=== PATIENT | male | born 1985 | race Caucasian/White ===

== ENCOUNTER 2017-03-04 10:17 | Emergency (ER) | payer BC, OTHER ==
[~2017-03-04] VITALS: Ht 172.7 cm; Wt 70.3 kg
[2017-03-04 10:25] VITALS: BP 119/65
[2017-03-04] MEDS ORDERED: TRIA15OI TP (10:37)
[2017-03-04] MEDS ORDERED: FAMO-63 PO (10:37)
[2017-03-04] MEDS ORDERED: DIPH25CA58 PO (10:37)
[2017-03-04] MEDS ORDERED: PRED-220 PO (10:37)
--- NOTE | 2017-03-04 10:37 | PHYS DOC ---
Past Medical History Past Medical History: No Pertinent History Past Surgical History: No Surgical History Alcohol Use: None Drug Use: None Adult General Chief Complaint Chief Complaint: SKIN RASH/ABSCESS HPI HPI Patient is a 31 year old male who presents with poison soumya rash throughout his body that began 3 days ago. Patient has tried calamine lotion as well as over- the-counter poison soumya medication with no relief. He is requesting a Decadron shot. Review of Systems Review of Systems Constitutional: Denies fever or chills [] Eyes: Denies change in visual acuity, redness, or eye pain [] HENT: Denies nasal congestion or sore throat [] Musculoskeletal: Denies back pain or joint pain [] Integument: Poison soumya rash Neurologic: Denies headache, focal weakness or sensory changes [] Endocrine: Denies polyuria or polydipsia [] Allergies Allergies Allergies Coded Allergies Type Severity Reaction Last Updated Verified codeine Allergy Intermediate hives 11/02/13 Yes hydrocodone Allergy Intermediate vomiting 11/02/13 Yes tramadol Allergy Intermediate vomiting 11/02/13 Yes Physical Exam Physical Exam Constitutional: Well developed, well nourished, no acute distress, non-toxic appearance. [] HENT: Normocephalic, atraumatic, bilateral external ears normal, oropharynx moist, no oral exudates, nose normal. [] Eyes: PERRLA, EOMI, conjunctiva normal, no discharge. [] Skin: Patient has mild amount of erythema on his face, he does have mild amount of erythematous papular rash on bilateral upper and lower extremities. Back: No tenderness, no CVA tenderness. [] Extremities: No tenderness, no cyanosis, no clubbing, ROM intact, no edema. [] Neurologic: Alert and oriented X 3, normal motor function, normal sensory function, no focal deficits noted. [] Psychologic: Affect normal, judgement normal, mood normal. [] EKG EKG [] Radiology/Procedures Radiology/Procedures [] Course & Med Decision Making Course & Med Decision Making Pertinent Labs and Imaging studies reviewed. (See chart for details) Patient is in the ED with contact dermatitis rash due to poison soumya. He requested a Decadron shot which was given in the ED. Discharged with prednisone , Benadryl, Pepcid and triamcinolone cream. Follow-up with PCP in 2 weeks as needed. Dragon Disclaimer Dragon Disclaimer This electronic medical record was generated, in whole or in part, using a voice recognition dictation system. Departure Departure Impression: Primary Impression: Contact dermatitis due to poison soumya Disposition: HOME, SELF-CARE Condition: STABLE Referrals: NO PCP (PCP) JUAN ANDERSON MD Follow-up with the provided tooling mechanic or your own doctor in 2 weeks Patient Instructions: Poison Soumya, [id number] Additional Instructions: You were seen for contact dermatitis rash due to poison soumya. Keep the areas clean and dry. Take the prescribed medicines as ordered. Follow-up with your doctor in 2 weeks. Scripts Diphenhydramine Hcl (BENADRYL) 25 Mg Capsule 1 CAP PO Q4HRS W/A, #30 CAP 1 Refill Prov: TRACY DIEGO APRN 03/04/17 Triamcinolone Acetonide (TRIAMCINOLONE ACETONIDE 0.1% OINT) 15 Gm Oint...g. 1 ABELARDO TP BID for WOUND CARE, #1 TUBE MIX WITH EUCERIN DIRECTED BY PHYSICIAN Prov: TRACY DIEGO APRN 03/04/17 Famotidine (PEPCID) 20 Mg Tablet 20 MG PO DAILY, #7 TAB Prov: TRACY DIEGO APRN 03/04/17 Prednisone (PREDNISONE) 10 Mg Tablet 10 MG PO UD for PREDNISONE TAPER, #39 TAB 0 Refills Take 3 tablets by mouth twice a day for 3 days, then take 2 tablets by mouth twice a day for 3 days, then take 1 tablet by mouth twice a day for 3 days, then take 1 tablet by mouth daily x 3 days, then stop. Prov: TRACY DIEGO APRN 03/04/17 TRACY DIEGO APRN Mar 04, 2017 10:37
[2017-03-04] MEDS ORDERED: DEXAMETHASONE SOD PHOS 20 MG/5 ML VIAL. IM ONE (10:45)
== END 2017-03-04 11:11 | disposition home or self-care (01) ==
LOC: ER 10:17
DX: L23.7 Allergic contact dermatitis due to plants, except food (principal); Z88.5 Allergy status to narcotic agent
CPT/HCPCS: 96372; 99283; J1100

== ENCOUNTER 2019-01-10 20:04 | Inpatient (IN) | payer OTHER ==
[~2019-01-10] VITALS: Ht 175.3 cm; Wt 75.4 kg
[~2019-01-10 20:04] MED LIST: DIPH25CA58 PO; FAMO-63 PO; PRED-220 PO; TRIA15OI TP
[2019-01-10] MEDS ORDERED: VANCOMYCIN 1GM IVPB FOR OMNI 250 ML IV ONE (20:30)
[2019-01-10] MEDS ORDERED: IV NORMAL SALINE 1000ML BAG 1,000 ML IV ONE (20:30)
--- NOTE | 2019-01-10 20:31 | PHYS DOC ---
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 He states he's been using the same needle over and over to inject his prophylactic medicine for hemophilia. He is unsure of what that medicine is. He also admits to using IV cocaine. She feels warm but he has no documented fever. He states the pain is severe at this point. He has never had a history of these kind of issues in the past. He states he just relapsed on his IV drugs recently.[] Review of Systems Review of Systems Constitutional: Denies fever or chills [] Eyes: Denies change in visual acuity, redness, or eye pain [] HENT: Denies nasal congestion or sore throat [] Respiratory: Denies cough or shortness of breath [] Cardiovascular: No additional information not addressed in HPI [] GI: Denies abdominal pain, nausea, vomiting, bloody stools or diarrhea [] : Denies dysuria or hematuria [] Musculoskeletal: Denies back pain or joint pain [] Integument: Per history of present illness[] Neurologic: Denies headache, focal weakness or sensory changes [] Endocrine: Denies polyuria or polydipsia [] All other systems were reviewed and found to be within normal limits, except as documented in this note. Current Medications Current Medications Current Medications Medications (Trade) Dose Ordered Sig/Dorothy Start Time Stop Time Status Last Admin Dose Admin Fentanyl Citrate (Fentanyl 2ml Vial) 50 mcg PRN Q2HR PRN 01/10/19 22:00 01/11/19 21:59 Ondansetron HCl (Zofran) 4 mg PRN Q8HRS PRN 01/10/19 22:00 01/11/19 21:59 Sodium Chloride 1,000 ml @ 150 mls/hr Q6H40M 01/10/19 22:00 01/11/19 21:59 Vancomycin HCl 1.75 gm/Sodium Chloride 500 ml @ 250 mls/hr 1X ONCE 01/10/19 21:00 01/10/19 22:59 01/10/19 21:00 250 MLS/HR Allergies Allergies Allergies Coded Allergies Type Severity Reaction Last Updated Verified codeine Allergy Intermediate hives 11/02/13 Yes hydrocodone Allergy Intermediate vomiting 11/02/13 Yes tramadol Allergy Intermediate vomiting 11/02/13 Yes Physical Exam Physical Exam Constitutional: Well developed, well nourished, moderate distress, non-toxic appearance. [] HENT: Normocephalic, atraumatic, bilateral external ears normal, oropharynx moist, no oral exudates, nose normal. [] Eyes: PERRLA, EOMI, conjunctiva normal, no discharge. [] Neck: Normal range of motion, no tenderness, supple, no stridor. [] Cardiovascular:Heart rate regular rhythm, no murmur [] Lungs & Thorax: Bilateral breath sounds clear to auscultation [] Abdomen: Bowel sounds normal, soft, no tenderness, no masses, no pulsatile masses. [] Skin: Large erythematous fluctuant area in the right antecubital fossa with 2 small necrotic areas[] Back: No tenderness, no CVA tenderness. [] Extremities: No tenderness, no cyanosis, no clubbing, ROM intact, no edema. [] Neurologic: Alert and oriented X 3, normal motor function, normal sensory function, no focal deficits noted. [] Psychologic: Extremely anxious. [] Current Patient Data Vital Signs Vital Signs Date Time Temp Pulse Resp B/P (MAP) Pulse Ox O2 Delivery O2 Flow Rate FiO2 01/10/19 20:09 98.8 84 16 137/65 (89) Room Air 98.8 Lab Values Laboratory Tests Test 01/10/19 20:45 White Blood Count 13.1 x10^3/uL (4.0-11.0) H Red Blood Count 5.10 x10^6/uL (4.30-5.70) Hemoglobin 14.4 g/dL (13.0-17.5) Hematocrit 44.1 % (39.0-53.0) Mean Corpuscular Volume 86 fL (79-100) Mean Corpuscular Hemoglobin 28 pg (25-35) Mean Corpuscular Hemoglobin Concent 33 g/dL (31-37) Red Cell Distribution Width 12.8 % (11.5-14.5) Platelet Count 216 x10^3/uL (140-400) Neutrophils (%) (Auto) 86 % (31-73) H Lymphocytes (%) (Auto) 6 % (24-48) L Monocytes (%) (Auto) 7 % (0-9) Eosinophils (%) (Auto) 0 % (0-3) Basophils (%) (Auto) 1 % (0-3) Neutrophils # (Auto) 11.3 x10^3uL (1.8-7.7) H Lymphocytes # (Auto) 0.8 x10^3/uL (1.0-4.8) L Monocytes # (Auto) 0.9 x10^3/uL (0.0-1.1) Eosinophils # (Auto) 0.0 x10^3/uL (0.0-0.7) Basophils # (Auto) 0.1 x10^3/uL (0.0-0.2) Platelet Estimate Pending Sodium Level 134 mmol/L (136-145) L Potassium Level 3.5 mmol/L (3.5-5.1) Chloride Level 97 mmol/L (98-107) L Carbon Dioxide Level 27 mmol/L (21-32) Anion Gap 10 (6-14) Blood Urea Nitrogen 8 mg/dL (8-26) Creatinine 0.8 mg/dL (0.7-1.3) Estimated GFR (Cockcroft-Gault) 110.7 BUN/Creatinine Ratio 10 (6-20) Glucose Level 116 mg/dL (70-99) H Lactic Acid Level 1.2 mmol/L (0.4-2.0) Calcium Level 8.9 mg/dL (8.5-10.1) Total Bilirubin 1.3 mg/dL (0.2-1.0) H Aspartate Amino Transferase (AST) 16 U/L (15-37) Alanine Aminotransferase (ALT) 15 U/L (16-63) L Alkaline Phosphatase 99 U/L (46-116) Total Protein 7.9 g/dL (6.4-8.2) Albumin 3.7 g/dL (3.4-5.0) Albumin/Globulin Ratio 0.9 (1.0-1.7) L Laboratory Tests 01/10/19 20:45 Laboratory Tests 01/10/19 20:45 EKG EKG [] Radiology/Procedures Radiology/Procedures [] Impressions: REASON: antecubital abscess PROCEDURE: EXT NON VASC RIGHT INDICATION: right elbow ac swelling COMPARISON: None. FINDINGS: Focused ultrasound images obtained of the antecubital region. There is a large heterogenous region within the soft tissues measuring 49 x 33 mm. There are some internal vascularity. The cephalic vein is seen adjacent to this site with vascular flow within. IMPRESSION: 1. Large suspected complex fluid collection within the antecubital region. Could be secondary to causes such as abscess or hematoma. Follow-up could be obtained to ensure this resolves. Course & Med Decision Making Course & Med Decision Making Pertinent Labs and Imaging studies reviewed. (See chart for details) [ED course: Evaluation reveals a 33-year-old male with a right antecubital fossa abscess. This is likely secondary to 30 needle use. Patient was given IV fluids and 1 g of IV vancomycin during his stay in the emergency department. Given his history of hemophilia I am not inclined to open his abscess at this time. I believe the patient would best benefit from admission to the hospital IV antibiotics a hematology consult and incision and drainage and a more controlled environment patient is in agreement with this plan. I did speak with the hospitalist who will put the patient in the hospital.] Dragon Disclaimer Dragon Disclaimer This electronic medical record was generated, in whole or in part, using a voice recognition dictation system. Departure Departure Impression: Primary Impression: Cutaneous abscess of right upper limb Additional Impressions: Hemophilia IV drug abuse Disposition: ADMITTED INPATIENT Admitting Physician: Nadine Calabrese Condition: GUARDED Referrals: NO PCP (PCP) Problem Qualifiers MOON HIGGINBOTHAM DO Jan 10, 2019 20:31
[2019-01-10 20:59] LABS: BASO # 0.1 x10^3/uL (0.0-0.2); BASO % 1 % (0-3); EOS % 0 % (0-3); HEMATOCRIT 44.1 % (39.0-53.0); HEMOGLOBIN 14.4 g/dL (13.0-17.5); LYMPH # 0.8 x10^3/uL (1.0-4.8); LYMPH % 6 % (24-48); MEAN CORPUSCULAR HEMOGLOBIN 28 pg (25-35); MEAN CORPUSCULAR HGB CONC 33 g/dL (31-37); MEAN CORPUSCULAR VOLUME 86 fL (79-100); MONO # 0.9 x10^3/uL (0.0-1.1); MONO % 7 % (0-9); NEUT # 11.3 x10^3uL (1.8-7.7); NEUT % 86 % (31-73); PLATELET COUNT 216 x10^3/uL (140-400); RED CELL DISTRIBUTION WIDTH 12.8 % (11.5-14.5); WHITE BLOOD COUNT 13.1 x10^3/uL (4.0-11.0)
[2019-01-10] MEDS ORDERED: VANCOMYCIN 1.75 GM in IV NORMAL SALINE 500ML BAG 500 ML IV ONE (21:00)
[2019-01-10 21:06] LABS: CALCIUM 8.9 mg/dL (8.5-10.1); CREATININE 0.8 mg/dL (0.7-1.3); GFR 110.7; POTASSIUM 3.5 mmol/L (3.5-5.1)
[2019-01-10 21:21] LABS: ALBUMIN 3.7 g/dL (3.4-5.0); ALBUMIN/GLOBULIN RATIO 0.9 (1.0-1.7); TOTAL BILIRUBIN 1.3 mg/dL (0.2-1.0); TOTAL PROTEIN 7.9 g/dL (6.4-8.2)
--- NOTE | 2019-01-10 21:32 | RAD ---
INDICATION: right elbow ac swelling COMPARISON: None. FINDINGS: Focused ultrasound images obtained of the antecubital region. There is a large heterogenous region within the soft tissues measuring 49 x 33 mm. There are some internal vascularity. The cephalic vein is seen adjacent to this site with vascular flow within. IMPRESSION: 1. Large suspected complex fluid collection within the antecubital region. Could be secondary to causes such as abscess or hematoma. Follow-up could be obtained to ensure this resolves. Electronically signed by: Alexandr Rao MD (01/10/2019 9:30 PM) [facility]
[2019-01-10] MEDS ORDERED: ONDANSETRON PF 4 MG/2 ML VIAL. IV PRN (22:00)
[2019-01-10 22:03] LABS: % BANDS 10 % (0-9); % LYMPHS 8 % (24-48); % MONOS 5 % (0-10); % SEGS 77 % (35-66); PLT ESTIMATE ADEQUATE (ADEQUATE)
[2019-01-10] MEDS: fentaNYL PF VIAL 100 MCG/2 ML VIAL IV PRN (22:56)
--- NOTE | 2019-01-10 23:15 | NUR ---
The patient, PRINCE LI, 33 y/o, M admitted by JOE SUAREZ MD, was given written information regarding hospital policies, unit procedures and contact persons. Patient arrived to room via wheelchair assisted by ED staff at [id number]. Valuables were checked and noted. Patient is laying in bed with an ice pack on his right AC, the right AC is intact and not draining at this time. The patient states no needs at this time. This RN will continue to monitor the patient at this time.
[2019-01-10 23:24] VITALS: BP 120/73
[2019-01-10] MEDS ORDERED: METH10TA2 PO (23:39)
[2019-01-10] MEDS: IV NORMAL SALINE 1000ML BAG 1,000 ML IV SCH (23:43)
[2019-01-11] VITALS (7 sets, daily range): BP systolic 81–116; BP diastolic 51–65
--- NOTE | 2019-01-11 00:15 | NUR ---
The patient's arm is red and swollen with a raised area the is white at the center in his right AC. While this RN was asking the patient his admission questions the patient began to poke at his Right AC with his finger. The patient stated the it popped, this RN saw that the raised whitened area started to leak a small amount of serous fluid. This RN left the room to retrieve some gauze and an ice pack. When this RN returned to the room the patient was standing with his arm over a pillow that was on his bed with the fluid dripping onto the pillow. The fluid was brown in color with slight blood seen on the pillow case. Another RN held pressure with a clean towel on the patient's right AC, once the wound stopped leaking this RN used wound wash on and around the wound and applied ABD pads to the wound site. This RN will continue to monitor the patient and the site at this time.
[2019-01-11] MEDS: fentaNYL PF VIAL 100 MCG/2 ML VIAL IV PRN ×7 (01:26→21:23)
[2019-01-11] MEDS: IV NORMAL SALINE 1000ML BAG 1,000 ML IV SCH ×3 (05:48→18:00)
[2019-01-11] MEDS ORDERED: ACETAMINOPHEN 500 MG TABLET PO PRN ×2 (08:30→18:15)
[2019-01-11] MEDS ORDERED: ZOLPIDEM 5 MG TABLET. PO PRN (08:30)
[2019-01-11] MEDS ORDERED: ONDANSETRON PF 4 MG/2 ML VIAL. IV PRN (08:30)
--- NOTE | 2019-01-11 08:45 | PDOC2 ---
CONSULT Date of Consult Date of Consult DATE: 01/11/19 TIME: 08:29 Reason for consultation: Hemophilia B Consult: Hematology oncology, Dr. Scout Hidalgo History of present illness: The patient is a 33-year-old man with a history of drug abuse, unfortunately he had a relapse with IV cocaine in his right antecubital fossa, used an old needle that was dirty, and has an abscess with pus draining from the antecubital fossa x 2 days, associated with pain and warmth, no fever, slight improvement after vancomycin in the ER and popping (he did) the lesion open last night, purulent drainage continues to come out of the lesion, and ultrasound in the ER showed a 49 x 33 mm complex fluid collection antecubital fossa abscess versus hematoma, the IV drug abuse was a relapse, he tells me he has no plans to use illegal drugs again, he does get methadone daily from the methadone clinic, 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 Never had to use any other product and denies inhibitors. 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 Drug abuse (bought OxyContin off the street in the past, recent IV cocaine use, committed to being clean now reportedly) Depression and anxiety History of GI bleed History of splenic laceration treated with factor replacement Past surgical history: Circumcision at 8 years old Allergies: Codeine and hydrocodone and tramadol, he believes he probably they made him itchy in the past Medications: See attached list Social history: , [employer], 2 boys Family history: Brother with hemophilia and a cousin with hemophilia Review of systems: Pain and redness and warmth at the antecubital fossa, restless legs, depression and anxiety, otherwise rest of review of systems is negative. Physical exam: Vitals reviewed Gen.: Well-nourished and well-developed in no acute distress HEENT: mucous membranes moist, head normocephalic atraumatic Neck: Supple, no lymphadenopathy Lymph nodes: No palpable lymphadenopathy neck or axilla Lungs: Breathing comfortably on room air, no evidence of respiratory distress Abdomen: Soft, nontender, nondistended Extremities: No cyanosis or significant edema other than redness and swelling with purulent drainage at the right antecubital fossa, bandaged Skin: No obvious rashes or skin breakdown other than the right antecubital fossa Neuro: Alert and oriented 3 Psych: Normal mood and affect, hesitant to talk about drug abuse Lab reviewed: Hemoglobin of 14.4, white count of 13.1, platelets of 216, creatinine is 0.8, lactate of 1.2, T bili of 1.3 Rads reviewed: Right AC ultrasound 49 x 33 mm complex fluid collection antecubital fossa, abscess versus hematoma Case discussed with: Patient, Dr. Bowling, his nurse, and records reviewed in [facility] and [facility] [employer] including labs and radiology, please see note for summary details. Assessment and Plan: He is a 33-year-old man with hemophilia B, levels have been as low as 3% in the past at , he is on daily factor replacement and admitted with abscess that does have purulent drainage at his right antecubital fossa. Abscess: Do suspect this may need more incision and drainage, he had a dose of vancomycin in the ER as well, would recommend if getting any surgical procedure to be transferred to where levels can be checked for factor replacement as needed hemophilia B: He has had over 8000 units replaced within the last 24 hours, would recommend giving 7000 units daily for now (could get from his if not being transferred soon, as we don't have it on hand) and await surgical recommendations, and titrate as needed based on factor IX levels and depending on what type of surgery/I/D may be planned (factor levels take 2-3 days when checked here, about 1 hr at when checked I'm told) h/o drug abuse: unable to get methadone (he gets daily from methadone clinic) but could likely get from as we have a methadone clinic there Disposition: Recommend transfer to or large tertiary center where he can get methadone, factor levels checked, and factor replaced expeditiously perioperatively as needed Thank you kindly for this consultation, and please don't hesitate to call with any further questions. Current Problem List Problem List Problems Medical Problems: (1) Cutaneous abscess of right upper limb Status: Acute (2) Hemophilia Status: Acute (3) IV drug abuse Status: Acute Current Medications Current Medications Current Medications Vancomycin HCl 250 ml @ 250 mls/hr 1X ONCE IV ; Start 01/10/19 at 20:30; Stop 01/10/19 at 21:29; Status UNV Sodium Chloride 1,000 ml @ 1,000 mls/hr 1X ONCE IV Last administered on at 20:30; Start 01/10/19 at 20:30; Stop 01/10/19 at 21:29; Status DC Vancomycin HCl 1.75 gm/Sodium Chloride 500 ml @ 250 mls/hr 1X ONCE IV Last administered on 01/10/19at 21:00; Start 01/10/19 at 21:00; Stop 01/10/19 at 22:59; Status DC Ondansetron HCl (Zofran) 4 mg PRN Q8HRS PRN IV NAUSEA/VOMITING; Start 01/10/19 at 22:00; Stop 01/11/19 at 21:59 Fentanyl Citrate (Fentanyl 2ml Vial) 50 mcg PRN Q2HR PRN IV PAIN Last administered on 01/11/19at 08:02; Start 01/10/19 at 22:00; Stop 01/11/19 at 21:59 Sodium Chloride 1,000 ml @ 150 mls/hr Q6H40M IV Last administered on at 05:48; Start 01/10/19 at 22:00; Stop 01/11/19 at 21:59 Lorazepam (Ativan) 1 mg 1X ONCE IV Last administered on 01/10/19at 22:57; Start 01/10/19 at 23:00; Stop 01/10/19 at 23:01; Status DC Non-Formulary Medication (Methadone Hcl ) 30 mg DAILY07 PO ; Start 01/12/19 at 07:00; Status UNV Active Scripts Active Reported Methadone Hcl 10 Mg Tablet 30 Mg PO DAILY07 Allergies Allergies: Coded Allergies: codeine (Verified Allergy, Intermediate, hives, 11/02/13) hydrocodone (Verified Allergy, Intermediate, vomiting, 11/02/13) tramadol (Verified Allergy, Intermediate, vomiting, 11/02/13) Vitals VITALS Vital Signs Date Time Temp Pulse Resp B/P (MAP) Pulse Ox O2 Delivery O2 Flow Rate FiO2 01/11/19 08:02 Room Air 01/11/19 07:00 98.5 59 18 106/53 (70) 95 98.5 Labs Labs Laboratory Tests Test 01/10/19 20:45 White Blood Count 13.1 x10^3/uL (4.0-11.0) Red Blood Count 5.10 x10^6/uL (4.30-5.70) Hemoglobin 14.4 g/dL (13.0-17.5) Hematocrit 44.1 % (39.0-53.0) Mean Corpuscular Volume 86 fL (79-100) Mean Corpuscular Hemoglobin 28 pg (25-35) Mean Corpuscular Hemoglobin Concent 33 g/dL (31-37) Red Cell Distribution Width 12.8 % (11.5-14.5) Platelet Count 216 x10^3/uL (140-400) Neutrophils (%) (Auto) 86 % (31-73) Lymphocytes (%) (Auto) 6 % (24-48) Monocytes (%) (Auto) 7 % (0-9) Eosinophils (%) (Auto) 0 % (0-3) Basophils (%) (Auto) 1 % (0-3) Neutrophils # (Auto) 11.3 x10^3uL (1.8-7.7) Lymphocytes # (Auto) 0.8 x10^3/uL (1.0-4.8) Monocytes # (Auto) 0.9 x10^3/uL (0.0-1.1) Eosinophils # (Auto) 0.0 x10^3/uL (0.0-0.7) Basophils # (Auto) 0.1 x10^3/uL (0.0-0.2) Segmented Neutrophils % 77 % (35-66) Band Neutrophils % 10 % (0-9) Lymphocytes % 8 % (24-48) Monocytes % 5 % (0-10) Platelet Estimate Adequate (ADEQUATE) Sodium Level 134 mmol/L (136-145) Potassium Level 3.5 mmol/L (3.5-5.1) Chloride Level 97 mmol/L (98-107) Carbon Dioxide Level 27 mmol/L (21-32) Anion Gap 10 (6-14) Blood Urea Nitrogen 8 mg/dL (8-26) Creatinine 0.8 mg/dL (0.7-1.3) Estimated GFR (Cockcroft-Gault) 110.7 BUN/Creatinine Ratio 10 (6-20) Glucose Level 116 mg/dL (70-99) Lactic Acid Level 1.2 mmol/L (0.4-2.0) Calcium Level 8.9 mg/dL (8.5-10.1) Total Bilirubin 1.3 mg/dL (0.2-1.0) Aspartate Amino Transf (AST/SGOT) 16 U/L (15-37) Alanine Aminotransferase (ALT/SGPT) 15 U/L (16-63) Alkaline Phosphatase 99 U/L (46-116) Total Protein 7.9 g/dL (6.4-8.2) Albumin 3.7 g/dL (3.4-5.0) Albumin/Globulin Ratio 0.9 (1.0-1.7) Laboratory Tests Test 01/10/19 20:45 White Blood Count 13.1 x10^3/uL (4.0-11.0) Red Blood Count 5.10 x10^6/uL (4.30-5.70) Hemoglobin 14.4 g/dL (13.0-17.5) Hematocrit 44.1 % (39.0-53.0) Mean Corpuscular Volume 86 fL (79-100) Mean Corpuscular Hemoglobin 28 pg (25-35) Mean Corpuscular Hemoglobin Concent 33 g/dL (31-37) Red Cell Distribution Width 12.8 % (11.5-14.5) Platelet Count 216 x10^3/uL (140-400) Neutrophils (%) (Auto) 86 % (31-73) Lymphocytes (%) (Auto) 6 % (24-48) Monocytes (%) (Auto) 7 % (0-9) Eosinophils (%) (Auto) 0 % (0-3) Basophils (%) (Auto) 1 % (0-3) Neutrophils # (Auto) 11.3 x10^3uL (1.8-7.7) Lymphocytes # (Auto) 0.8 x10^3/uL (1.0-4.8) Monocytes # (Auto) 0.9 x10^3/uL (0.0-1.1) Eosinophils # (Auto) 0.0 x10^3/uL (0.0-0.7) Basophils # (Auto) 0.1 x10^3/uL (0.0-0.2) Segmented Neutrophils % 77 % (35-66) Band Neutrophils % 10 % (0-9) Lymphocytes % 8 % (24-48) Monocytes % 5 % (0-10) Platelet Estimate Adequate (ADEQUATE) Sodium Level 134 mmol/L (136-145) Potassium Level 3.5 mmol/L (3.5-5.1) Chloride Level 97 mmol/L (98-107) Carbon Dioxide Level 27 mmol/L (21-32) Anion Gap 10 (6-14) Blood Urea Nitrogen 8 mg/dL (8-26) Creatinine 0.8 mg/dL (0.7-1.3) Estimated GFR (Cockcroft-Gault) 110.7 BUN/Creatinine Ratio 10 (6-20) Glucose Level 116 mg/dL (70-99) Lactic Acid Level 1.2 mmol/L (0.4-2.0) Calcium Level 8.9 mg/dL (8.5-10.1) Total Bilirubin 1.3 mg/dL (0.2-1.0) Aspartate Amino Transf (AST/SGOT) 16 U/L (15-37) Alanine Aminotransferase (ALT/SGPT) 15 U/L (16-63) Alkaline Phosphatase 99 U/L (46-116) Total Protein 7.9 g/dL (6.4-8.2) Albumin 3.7 g/dL (3.4-5.0) Albumin/Globulin Ratio 0.9 (1.0-1.7) SCOUT HIDALGO MD Jan 11, 2019 08:45
[2019-01-11] MEDS: METHADONE (DAILY MAINT DOSE) 100 MG/100 ML SOLUTION PO SCH (09:00)
--- NOTE | 2019-01-11 09:31 | PDOC ---
Infectious Disease Note Vital Sign Vital Signs Vital Signs Date Time Temp Pulse Resp B/P (MAP) Pulse Ox O2 Delivery O2 Flow Rate FiO2 01/11/19 08:48 95 Room Air 01/11/19 07:00 98.5 59 18 106/53 (70) 98.5 Labs Lab Laboratory Tests Test 01/10/19 20:45 White Blood Count 13.1 x10^3/uL (4.0-11.0) Red Blood Count 5.10 x10^6/uL (4.30-5.70) Hemoglobin 14.4 g/dL (13.0-17.5) Hematocrit 44.1 % (39.0-53.0) Mean Corpuscular Volume 86 fL (79-100) Mean Corpuscular Hemoglobin 28 pg (25-35) Mean Corpuscular Hemoglobin Concent 33 g/dL (31-37) Red Cell Distribution Width 12.8 % (11.5-14.5) Platelet Count 216 x10^3/uL (140-400) Neutrophils (%) (Auto) 86 % (31-73) Lymphocytes (%) (Auto) 6 % (24-48) Monocytes (%) (Auto) 7 % (0-9) Eosinophils (%) (Auto) 0 % (0-3) Basophils (%) (Auto) 1 % (0-3) Neutrophils # (Auto) 11.3 x10^3uL (1.8-7.7) Lymphocytes # (Auto) 0.8 x10^3/uL (1.0-4.8) Monocytes # (Auto) 0.9 x10^3/uL (0.0-1.1) Eosinophils # (Auto) 0.0 x10^3/uL (0.0-0.7) Basophils # (Auto) 0.1 x10^3/uL (0.0-0.2) Segmented Neutrophils % 77 % (35-66) Band Neutrophils % 10 % (0-9) Lymphocytes % 8 % (24-48) Monocytes % 5 % (0-10) Platelet Estimate Adequate (ADEQUATE) Sodium Level 134 mmol/L (136-145) Potassium Level 3.5 mmol/L (3.5-5.1) Chloride Level 97 mmol/L (98-107) Carbon Dioxide Level 27 mmol/L (21-32) Anion Gap 10 (6-14) Blood Urea Nitrogen 8 mg/dL (8-26) Creatinine 0.8 mg/dL (0.7-1.3) Estimated GFR (Cockcroft-Gault) 110.7 BUN/Creatinine Ratio 10 (6-20) Glucose Level 116 mg/dL (70-99) Lactic Acid Level 1.2 mmol/L (0.4-2.0) Calcium Level 8.9 mg/dL (8.5-10.1) Total Bilirubin 1.3 mg/dL (0.2-1.0) Aspartate Amino Transf (AST/SGOT) 16 U/L (15-37) Alanine Aminotransferase (ALT/SGPT) 15 U/L (16-63) Alkaline Phosphatase 99 U/L (46-116) Total Protein 7.9 g/dL (6.4-8.2) Albumin 3.7 g/dL (3.4-5.0) Albumin/Globulin Ratio 0.9 (1.0-1.7) Objective Assessment Rt anticubital fossa abscess Rt upper ext cellulitis IVDU Fever Leukocytosis Hemophilia Plan Plan of Care vanc and zosyn culture need I and D supportive care drug screen EUGENIO MERINO MD Jan 11, 2019 09:31
[2019-01-11] MEDS: PIPERACILLIN/TAZOBACTAM 3.375 GM in IV NORMAL SALINE 50ML 50 ML IV SCH ×2 (10:25→18:01)
--- NOTE | 2019-01-11 10:48 | NUR ---
Per Physician request, [facility] faxed clinicals to transfer line. An inpatient request has already been made by Physician. Pt acceptance and admission pending. Will continue to follow.
--- NOTE | 2019-01-11 11:08 | PDOC1 ---
History and Physical Date of Admission Date of Admission DATE: 01/11/19 TIME: 11:03 Identification/Chief Complaint Chief Complaint Right antecubital fossa infection Source Source: Caregiver, Chart review, Patient History of Present Illness History of Present Illness 43-year-old white male who is a hemophiliac B since , usually follows with has recombinant factor IX. Comes in because of right ante cubital foci sepsis infection/abscess. Denies fever at home. Abscess on US. It was really bad looking and draining pus Admits to IV cocaine use /injecting on that site. Admitted with consults to heme onc and ID and [facility]. But heme onc recommends transfer to bec we do not carry recombinant factor IX here and he clearly needs IND and there will be bleeding. WBC 13, no fevers overnight platelets 213 He is agreeable to transfer to . I have reached out to transfer service and we are awaiting decision Discussed with multiple subspecialties and social work I did consult ID because of the significant abscess/infection in this drug user UDS is still pending. ON zosyn with 1 dose vanc given Past Medical History Heme/Onc: Other (hemophilia B) Past Surgical History Past Surgical History: No pertinent history Family History Family History: Family History Unknown Social History Smoke: No ALCOHOL: occassional Drugs: Cocaine Current Problem List Problem List Problems Medical Problems: (1) Cutaneous abscess of right upper limb Status: Acute (2) Hemophilia Status: Acute (3) IV drug abuse Status: Acute Current Medications Current Medications Current Medications Vancomycin HCl 250 ml @ 250 mls/hr 1X ONCE IV ; Start 01/10/19 at 20:30; Stop 01/10/19 at 21:29; Status UNV Sodium Chloride 1,000 ml @ 1,000 mls/hr 1X ONCE IV Last administered on at 20:30; Start 01/10/19 at 20:30; Stop 01/10/19 at 21:29; Status DC Vancomycin HCl 1.75 gm/Sodium Chloride 500 ml @ 250 mls/hr 1X ONCE IV Last administered on 01/10/19at 21:00; Start 01/10/19 at 21:00; Stop 01/10/19 at 22:59; Status DC Ondansetron HCl (Zofran) 4 mg PRN Q8HRS PRN IV NAUSEA/VOMITING; Start 01/10/19 at 22:00; Stop 01/11/19 at 08:31; Status DC Fentanyl Citrate (Fentanyl 2ml Vial) 50 mcg PRN Q2HR PRN IV PAIN Last administered on 01/11/19at 10:24; Start 01/10/19 at 22:00; Stop 01/11/19 at 21:59 Sodium Chloride 1,000 ml @ 150 mls/hr Q6H40M IV Last administered on at 05:48; Start 01/10/19 at 22:00; Stop 01/11/19 at 21:59 Lorazepam (Ativan) 1 mg 1X ONCE IV Last administered on 01/10/19at 22:57; Start 01/10/19 at 23:00; Stop 01/10/19 at 23:01; Status DC Methadone HCl (Dolophine) 30 mg DAILY PO Last administered on 01/11/19at 09:00; Start 01/11/19 at 09:30 Ondansetron HCl (Zofran) 4 mg PRN Q6HRS PRN IV NAUSEA/VOMITING; Start 01/11/19 at 08:30 Acetaminophen (Tylenol) 500 mg PRN Q6HRS PRN PO MILD PAIN / TEMP; Start at 08:30 Zolpidem Tartrate (Ambien) 5 mg PRN QHS PRN PO INSOMNIA; Start 01/11/19 at 08: 30 Piperacillin Sod/ Tazobactam Sod 3.375 gm/Sodium Chloride 50 ml @ 100 mls/hr Q6HRS IV Last administered on 01/11/19at 10:25; Start 01/11/19 at 10:00 Active Scripts Active Reported Methadone Hcl 10 Mg Tablet 30 Mg PO DAILY07 Allergies Allergies: Coded Allergies: codeine (Verified Allergy, Intermediate, hives, 11/02/13) hydrocodone (Verified Allergy, Intermediate, vomiting, 11/02/13) tramadol (Verified Allergy, Intermediate, vomiting, 11/02/13) ROS Review of System Right antecubital fossa pain, subjective fevers?, Rest of 14 point negative Physical Exam General: Alert, Oriented X3, Cooperative, No acute distress HEENT: Atraumatic, PERRLA, EOMI Lungs: Clear to auscultation, Normal air movement Heart: S1S2, RRR, no thrills, no rubs, no gallops, no murmurs, no jug vein distention Cardiovascular: S1, S2 Abdomen: Normal bowel sounds, Soft, No tenderness, No hepatosplenomegaly, No masses Male Genitals Exam: normal genitalia, normal prostate Rectal Exam: not examined PELVIC: Nml ext genitalia Skin: Other (right antecubital abscess cellulitis draining fluid red tender) Neuro: Normal gait, Normal speech, Strength at 5/5 X4 ext, Normal tone, Sensation intact, Cranial nerves 3-12 NL, Reflexes 2+ Psych/Mental Status: Mental status NL, Mood NL Vitals Vitals Vital Signs Date Time Temp Pulse Resp B/P (MAP) Pulse Ox O2 Delivery O2 Flow Rate FiO2 01/11/19 10:24 Room Air 01/11/19 08:48 95 01/11/19 07:00 98.5 59 18 106/53 (70) 98.5 Labs Labs Laboratory Tests Test 01/10/19 20:45 White Blood Count 13.1 x10^3/uL (4.0-11.0) Red Blood Count 5.10 x10^6/uL (4.30-5.70) Hemoglobin 14.4 g/dL (13.0-17.5) Hematocrit 44.1 % (39.0-53.0) Mean Corpuscular Volume 86 fL (79-100) Mean Corpuscular Hemoglobin 28 pg (25-35) Mean Corpuscular Hemoglobin Concent 33 g/dL (31-37) Red Cell Distribution Width 12.8 % (11.5-14.5) Platelet Count 216 x10^3/uL (140-400) Neutrophils (%) (Auto) 86 % (31-73) Lymphocytes (%) (Auto) 6 % (24-48) Monocytes (%) (Auto) 7 % (0-9) Eosinophils (%) (Auto) 0 % (0-3) Basophils (%) (Auto) 1 % (0-3) Neutrophils # (Auto) 11.3 x10^3uL (1.8-7.7) Lymphocytes # (Auto) 0.8 x10^3/uL (1.0-4.8) Monocytes # (Auto) 0.9 x10^3/uL (0.0-1.1) Eosinophils # (Auto) 0.0 x10^3/uL (0.0-0.7) Basophils # (Auto) 0.1 x10^3/uL (0.0-0.2) Segmented Neutrophils % 77 % (35-66) Band Neutrophils % 10 % (0-9) Lymphocytes % 8 % (24-48) Monocytes % 5 % (0-10) Platelet Estimate Adequate (ADEQUATE) Sodium Level 134 mmol/L (136-145) Potassium Level 3.5 mmol/L (3.5-5.1) Chloride Level 97 mmol/L (98-107) Carbon Dioxide Level 27 mmol/L (21-32) Anion Gap 10 (6-14) Blood Urea Nitrogen 8 mg/dL (8-26) Creatinine 0.8 mg/dL (0.7-1.3) Estimated GFR (Cockcroft-Gault) 110.7 BUN/Creatinine Ratio 10 (6-20) Glucose Level 116 mg/dL (70-99) Lactic Acid Level 1.2 mmol/L (0.4-2.0) Calcium Level 8.9 mg/dL (8.5-10.1) Total Bilirubin 1.3 mg/dL (0.2-1.0) Aspartate Amino Transf (AST/SGOT) 16 U/L (15-37) Alanine Aminotransferase (ALT/SGPT) 15 U/L (16-63) Alkaline Phosphatase 99 U/L (46-116) Total Protein 7.9 g/dL (6.4-8.2) Albumin 3.7 g/dL (3.4-5.0) Albumin/Globulin Ratio 0.9 (1.0-1.7) Laboratory Tests Test 01/10/19 20:45 White Blood Count 13.1 x10^3/uL (4.0-11.0) Red Blood Count 5.10 x10^6/uL (4.30-5.70) Hemoglobin 14.4 g/dL (13.0-17.5) Hematocrit 44.1 % (39.0-53.0) Mean Corpuscular Volume 86 fL (79-100) Mean Corpuscular Hemoglobin 28 pg (25-35) Mean Corpuscular Hemoglobin Concent 33 g/dL (31-37) Red Cell Distribution Width 12.8 % (11.5-14.5) Platelet Count 216 x10^3/uL (140-400) Neutrophils (%) (Auto) 86 % (31-73) Lymphocytes (%) (Auto) 6 % (24-48) Monocytes (%) (Auto) 7 % (0-9) Eosinophils (%) (Auto) 0 % (0-3) Basophils (%) (Auto) 1 % (0-3) Neutrophils # (Auto) 11.3 x10^3uL (1.8-7.7) Lymphocytes # (Auto) 0.8 x10^3/uL (1.0-4.8) Monocytes # (Auto) 0.9 x10^3/uL (0.0-1.1) Eosinophils # (Auto) 0.0 x10^3/uL (0.0-0.7) Basophils # (Auto) 0.1 x10^3/uL (0.0-0.2) Segmented Neutrophils % 77 % (35-66) Band Neutrophils % 10 % (0-9) Lymphocytes % 8 % (24-48) Monocytes % 5 % (0-10) Platelet Estimate Adequate (ADEQUATE) Sodium Level 134 mmol/L (136-145) Potassium Level 3.5 mmol/L (3.5-5.1) Chloride Level 97 mmol/L (98-107) Carbon Dioxide Level 27 mmol/L (21-32) Anion Gap 10 (6-14) Blood Urea Nitrogen 8 mg/dL (8-26) Creatinine 0.8 mg/dL (0.7-1.3) Estimated GFR (Cockcroft-Gault) 110.7 BUN/Creatinine Ratio 10 (6-20) Glucose Level 116 mg/dL (70-99) Lactic Acid Level 1.2 mmol/L (0.4-2.0) Calcium Level 8.9 mg/dL (8.5-10.1) Total Bilirubin 1.3 mg/dL (0.2-1.0) Aspartate Amino Transf (AST/SGOT) 16 U/L (15-37) Alanine Aminotransferase (ALT/SGPT) 15 U/L (16-63) Alkaline Phosphatase 99 U/L (46-116) Total Protein 7.9 g/dL (6.4-8.2) Albumin 3.7 g/dL (3.4-5.0) Albumin/Globulin Ratio 0.9 (1.0-1.7) VTE Prophylaxis Ordered VTE Prophylaxis Devices: Contraindicated VTE Pharmacological Prophylaxi: Contraindicated Assessment/Plan Assessment/Plan Right antecubital cellulitis with abscess IV drug use in that area-IV cocaine Hemophilia B PLAN: Attempting transfer to because need for recombinant factor IX when IND will be done by [facility]n for now JOE SUAREZ MD Jan 11, 2019 11:08
--- NOTE | 2019-01-11 11:09 | PDOC3 ---
Discharge Summary Visit Information Date of Admission: Jan 10, 2019 Date of Discharge: Jan 11, 2019 Admitting Diagnosis Comment: Right antecubital cellulitis with abscess IV drug use in that area-IV cocaine Hemophilia B PLAN: Attempting transfer to because need for recombinant factor IX when IND will be done by JENI Contreras for now Final Diagnosis Problems Medical Problems: (1) Cutaneous abscess of right upper limb Status: Acute (2) Hemophilia Status: Acute (3) IV drug abuse Status: Acute Brief Hospital Course Allergies Allergies Coded Allergies Type Severity Reaction Last Updated Verified codeine Allergy Intermediate hives 11/02/13 Yes hydrocodone Allergy Intermediate vomiting 11/02/13 Yes tramadol Allergy Intermediate vomiting 11/02/13 Yes Vital Signs Vital Signs Date Time Temp Pulse Resp B/P (MAP) Pulse Ox O2 Delivery O2 Flow Rate FiO2 01/11/19 10:24 Room Air 01/11/19 08:48 95 01/11/19 07:00 98.5 59 18 106/53 (70) 98.5 Lab Results Laboratory Tests Test 01/10/19 20:45 White Blood Count 13.1 x10^3/uL (4.0-11.0) Red Blood Count 5.10 x10^6/uL (4.30-5.70) Hemoglobin 14.4 g/dL (13.0-17.5) Hematocrit 44.1 % (39.0-53.0) Mean Corpuscular Volume 86 fL (79-100) Mean Corpuscular Hemoglobin 28 pg (25-35) Mean Corpuscular Hemoglobin Concent 33 g/dL (31-37) Red Cell Distribution Width 12.8 % (11.5-14.5) Platelet Count 216 x10^3/uL (140-400) Neutrophils (%) (Auto) 86 % (31-73) Lymphocytes (%) (Auto) 6 % (24-48) Monocytes (%) (Auto) 7 % (0-9) Eosinophils (%) (Auto) 0 % (0-3) Basophils (%) (Auto) 1 % (0-3) Neutrophils # (Auto) 11.3 x10^3uL (1.8-7.7) Lymphocytes # (Auto) 0.8 x10^3/uL (1.0-4.8) Monocytes # (Auto) 0.9 x10^3/uL (0.0-1.1) Eosinophils # (Auto) 0.0 x10^3/uL (0.0-0.7) Basophils # (Auto) 0.1 x10^3/uL (0.0-0.2) Segmented Neutrophils % 77 % (35-66) Band Neutrophils % 10 % (0-9) Lymphocytes % 8 % (24-48) Monocytes % 5 % (0-10) Platelet Estimate Adequate (ADEQUATE) Sodium Level 134 mmol/L (136-145) Potassium Level 3.5 mmol/L (3.5-5.1) Chloride Level 97 mmol/L (98-107) Carbon Dioxide Level 27 mmol/L (21-32) Anion Gap 10 (6-14) Blood Urea Nitrogen 8 mg/dL (8-26) Creatinine 0.8 mg/dL (0.7-1.3) Estimated GFR (Cockcroft-Gault) 110.7 BUN/Creatinine Ratio 10 (6-20) Glucose Level 116 mg/dL (70-99) Lactic Acid Level 1.2 mmol/L (0.4-2.0) Calcium Level 8.9 mg/dL (8.5-10.1) Total Bilirubin 1.3 mg/dL (0.2-1.0) Aspartate Amino Transf (AST/SGOT) 16 U/L (15-37) Alanine Aminotransferase (ALT/SGPT) 15 U/L (16-63) Alkaline Phosphatase 99 U/L (46-116) Total Protein 7.9 g/dL (6.4-8.2) Albumin 3.7 g/dL (3.4-5.0) Albumin/Globulin Ratio 0.9 (1.0-1.7) Laboratory Tests Test 01/10/19 20:45 White Blood Count 13.1 x10^3/uL (4.0-11.0) Red Blood Count 5.10 x10^6/uL (4.30-5.70) Hemoglobin 14.4 g/dL (13.0-17.5) Hematocrit 44.1 % (39.0-53.0) Mean Corpuscular Volume 86 fL (79-100) Mean Corpuscular Hemoglobin 28 pg (25-35) Mean Corpuscular Hemoglobin Concent 33 g/dL (31-37) Red Cell Distribution Width 12.8 % (11.5-14.5) Platelet Count 216 x10^3/uL (140-400) Neutrophils (%) (Auto) 86 % (31-73) Lymphocytes (%) (Auto) 6 % (24-48) Monocytes (%) (Auto) 7 % (0-9) Eosinophils (%) (Auto) 0 % (0-3) Basophils (%) (Auto) 1 % (0-3) Neutrophils # (Auto) 11.3 x10^3uL (1.8-7.7) Lymphocytes # (Auto) 0.8 x10^3/uL (1.0-4.8) Monocytes # (Auto) 0.9 x10^3/uL (0.0-1.1) Eosinophils # (Auto) 0.0 x10^3/uL (0.0-0.7) Basophils # (Auto) 0.1 x10^3/uL (0.0-0.2) Segmented Neutrophils % 77 % (35-66) Band Neutrophils % 10 % (0-9) Lymphocytes % 8 % (24-48) Monocytes % 5 % (0-10) Platelet Estimate Adequate (ADEQUATE) Sodium Level 134 mmol/L (136-145) Potassium Level 3.5 mmol/L (3.5-5.1) Chloride Level 97 mmol/L (98-107) Carbon Dioxide Level 27 mmol/L (21-32) Anion Gap 10 (6-14) Blood Urea Nitrogen 8 mg/dL (8-26) Creatinine 0.8 mg/dL (0.7-1.3) Estimated GFR (Cockcroft-Gault) 110.7 BUN/Creatinine Ratio 10 (6-20) Glucose Level 116 mg/dL (70-99) Lactic Acid Level 1.2 mmol/L (0.4-2.0) Calcium Level 8.9 mg/dL (8.5-10.1) Total Bilirubin 1.3 mg/dL (0.2-1.0) Aspartate Amino Transf (AST/SGOT) 16 U/L (15-37) Alanine Aminotransferase (ALT/SGPT) 15 U/L (16-63) Alkaline Phosphatase 99 U/L (46-116) Total Protein 7.9 g/dL (6.4-8.2) Albumin 3.7 g/dL (3.4-5.0) Albumin/Globulin Ratio 0.9 (1.0-1.7) Brief Hospital Course Mr. Sue is a 33 old [sex] who presented with [ ] 43-year-old white male who is a hemophiliac B since , usually follows with [facility] has recombinant factor IX. Comes in because of right ante cubital foci sepsis infection/abscess. Denies fever at home. Abscess on US. It was really bad looking and draining pus Admits to IV cocaine use /injecting on that site. Admitted with consults to heme onc and ID and [facility]. But heme onc recommends transfer to bec we do not carry recombinant factor IX here and he clearly needs IND and there will be bleeding. WBC 13, no fevers overnight platelets 213 He is agreeable to transfer to . I have reached out to transfer service and we are awaiting decision Discussed with multiple subspecialties and social work I did consult ID because of the significant abscess/infection in this drug user UDS is still pending. ON zosyn with 1 dose vanc given Discharge Information Condition at Discharge: Stable Disposition/Orders: Other (transfer to ) Scheduled Methadone Hcl (Methadone Hcl) 10 Mg Tablet, 30 MG PO DAILY07 for withdrawl prevention, (Reported) Entered as Reported by: LYNDSAY MCMULLEN on 01/10/19 5009 Last Action: Converted on 01/11/19 0673 by JOE APONTE MD Jan 11, 2019 11:09
[2019-01-11 12:00] LABS: BARBITURATES NEG (NEG); BENZODIAZEPINES NEG (NEG); CANNABINOIDS NEG (NEG); COCAINE NEG (NEG); METHADONE POS (NEG); OPIATES NEG (NEG); PHENCYCLIDINE NEG (NEG)
[2019-01-11 12:02] LABS: AMPHETAMINE/METHAMPHETAMINE NEG (NEG)
--- NOTE | 2019-01-11 14:01 | NUR ---
SW following for discharge planning. SW contacted [facility] for transfer request. SW faxed requested documents to initiate transfer. SW will continue to follow.
--- NOTE | 2019-01-11 15:25 | NUR ---
Wound Care Pt seen for wound care consultation re: a wound to pt's R antecubital area. Upon entering room, pt was pacing around the room "cleaning things up". Pt sat on bed, R AC dressing removed, and a large amount of creamy, brown, odorous drainage came pouring out of wound, periwound hot, red and indurated. Pt became anxious and asked for a mask d/t the smell. Wound cleaned and repacked with 1/4" Iodoform packing, ABD and kerlix, pt tolerated with a moderate amount of pain, asking us to "double up" his pain meds, Magi, RN informed of request. Educated pt on keeping dressing CDI and allowing the staffing operations manager to change packing and dressing daily, pt v/u. Spoke with Dr. Bowling this morning re: his consult, who stated he has no intention of taking pt to surgery at this time. Will continue to follow for wound care needs.
--- NOTE | 2019-01-11 15:51 | NUR ---
[facility] is at capacity at this time.
[2019-01-11] MEDS ORDERED: VANCOMYCIN PER PHARMACY MC PRN (16:00)
--- NOTE | 2019-01-11 16:01 | NUR ---
Pharmacy Vancomycin Dosing Note S:Consulted to monitor and dose vancomycin started 01/10/19. O:PRINCE LI is a 33 year old M with Abscess, Cellulitis Height: 5 feet, 9 inches Weight: 75.4 kg [place] Body Weight: 70.70 Adjusted Body Weight: 72.58 Dosing Weight: Actual Other Antibiotics: zosyn LABS: Last BUN: 8 Last Creatinine: 0.8 Creatinine Clearance: >100 mL/min Last WBC: 13.1 Last Procalcitonin: Tmax (past 24 hours): 98.2 Microbiology: - Last dose given 01/11/19 at 2100 Vancomycin Dosing: Loading Dose: 1750 mg x1 Dosing Weight: Actual Target Trough: 15-20 A: Based on: weight and renal function P: 1. Begin Vancomycin 1000 mg IV q8h 2. Follow up trough level 01/12 at 1530 3. Pharmacy will continue to monitor, follow and adjust therapy as needed. Katherine Baptiste RPH, 01/11/19 [id number]
[2019-01-11] MEDS: VANCOMYCIN 1 GM in IV NORMAL SALINE 250ML 250 ML IV SCH (16:25)
--- NOTE | 2019-01-11 22:27 | CONS ---
DATE OF CONSULTATION: 01/11/2019 REQUESTING PHYSICIAN: Dr. Calabrese. REASON FOR CONSULTATION: Right upper extremity infection. HISTORY OF PRESENT ILLNESS: This is a 33-year-old gentleman, with history of hemophilia B, who has been on medication for that, who also has history of drug use and he did use cocaine in the right antecubital fossa. The patient subsequently developed infection and came in with redness, swelling, pain, fever and leukocytosis. The patient has been started on vancomycin and consult has been requested. The patient denies any nausea, vomiting or diarrhea. Denies any other complaints. PAST MEDICAL HISTORY: Positive for hemophilia B, history of drug use, history of anxiety and depression, splenic laceration. SOCIAL HISTORY: Positive for smoking, social alcohol use and cocaine use. ALLERGIES: LISTED ALLERGIC TO CODEINE AND HYDROCODONE. CURRENT MEDICATIONS: Reviewed. The patient is on vancomycin. REVIEW OF SYSTEMS: As per HPI. All other systems reviewed are negative. PHYSICAL EXAMINATION: GENERAL: Alert and oriented gentleman, not in any distress. VITAL SIGNS: Stable with a T-max of 99.4. HEENT: NAD. NECK: Supple, no JVP, no lymphadenopathy. LUNGS: Clear. HEART: S1, S2 regular. ABDOMEN: Benign. EXTREMITIES: No edema or cyanosis. SKIN: Unremarkable except right upper extremity. There is necrotic opening in the antecubital fossa and significant surrounding redness, induration, tenderness that involves the upper arm and the forearm. Elbow movements are normal. NEUROLOGIC: The patient is neurologically intact. LABORATORY DATA: White count is 13,000, platelets are normal. BUN and creatinine is normal. Lactic acid is normal. Culture is pending. Ultrasound of the area showed large complex fluid collection within the antecubital fossa. IMPRESSION: 1. Right antecubital fossa abscess from IV drug use. 2. Right upper extremity cellulitis. 3. Fever. 4. Leukocytosis. 5. Hemophilia. 6. IV drug use. RECOMMENDATIONS: We will add Zosyn to vancomycin. We will get the cultures. Supportive care. The patient says he has not ever shared needles with anybody else, hence he may not need HIV, but ideally, we should do it. Thank you very much, Dr. Calabrese, for giving me the opportunity to participate in this patient's care. EUGENIO MERINO MD DR: REAGAN/julisa JOB#: [id number] / [id number]
[2019-01-12] MEDS ORDERED: HALOPERIDOL LACTATE 5 MG/ML VIAL. IVP PRN
[2019-01-12] MEDS: PIPERACILLIN/TAZOBACTAM 3.375 GM in IV NORMAL SALINE 50ML 50 ML IV SCH ×3 (02:17→12:00)
--- NOTE | 2019-01-12 02:30 | NUR ---
At about 2215 this RN entered the patient's room to answer his call light, upon entering the room this RN noticed a smoky smell that was not present before. The patient was in the shower and asking for towels, as this RN entered the bathroom this RN noticed a "Vap Box" sitting on the patient's sink. This RN put the Vap Box in a bag and asked the patient if he had been using the device and the patient stated "no". This RN informed the patient of the hospitals non-smoking policy. The patient stated that the device did not contain nicotine, this RN informed the patient that a senior security architect can come up and explain the non-smoking policy to the patient in more detail, the patient agreed. This RN asked the senior security architect to come into the patient's room to explain the policy to the patient. When This RN and the senior security architect enter the patient's room the security office informed the patient of the policy and stated that either the patient's could come and get the device or the patient can have security put the device into the safe. The patient became agitated and started yelling that "the black security officer wants to steal my shit". At this time the nursing supervisor landscape came into the room and the patient became even more agitated. The patient began to yell about things unrelated to the smoking policy, at this point another security officer was brought up. The patient then began to yell that the "black security officer" was going to come to his room and "slit his throat at night". During this time the patient is putting his clothes and belongings into the green patient belonging bags stating that he was leaving. This RN and two other security guards attempted to calm the patient multiple times, at this time the patient stated that he wanted to go outside to smoke his Vap. The patients peripheral IV was removed per patient request. The Nursing supervisor landscape informed the patient that if he were to leave the hospital to smoke it would be as if he were leaving AMA. At this time the patient stated that he did not wish to leave AMA. The patient began to calm down around 0030, the patient is currently refusing a gown or pants, the patient stated that if everyone wants to see my penis then here it is. An IV access was placed at 0210 and the patient was given Haldol. This RN will continue to monitor the patient at this time.
--- NOTE | 2019-01-12 02:30 | NUR ---
Patient is refusing for this RN to change his wound dressing. This RN provided the patient with 4X4 gauze and Kurlex, the patient folded the gauze and placed it over his wound then took the kurlex and loosely wrapped it around his arm. This RN entered his room at this time, the patient currently has folded paper towels and white netting on his arm. He refuses for any RN to change his dressing.
[2019-01-12 03:13] VITALS: BP 104/57
[2019-01-12] MEDS: VANCOMYCIN 1 GM in IV NORMAL SALINE 250ML 250 ML IV SCH ×2 (03:56→09:08)
[2019-01-12 06:01] LABS: CALCIUM 7.7 mg/dL (8.5-10.1); CREATININE 0.8 mg/dL (0.7-1.3); GFR 110.7; POTASSIUM 3.5 mmol/L (3.5-5.1)
[2019-01-12 06:17] LABS: BASO # 0.1 x10^3/uL (0.0-0.2); BASO % 1 % (0-3); EOS # 0.2 x10^3/uL (0.0-0.7); EOS % 3 % (0-3); HEMATOCRIT 34.8 % (39.0-53.0); HEMOGLOBIN 11.7 g/dL (13.0-17.5); LYMPH # 1.7 x10^3/uL (1.0-4.8); LYMPH % 24 % (24-48); MEAN CORPUSCULAR HEMOGLOBIN 29 pg (25-35); MEAN CORPUSCULAR HGB CONC 34 g/dL (31-37); MEAN CORPUSCULAR VOLUME 86 fL (79-100); MONO # 0.7 x10^3/uL (0.0-1.1); MONO % 10 % (0-9); NEUT # 4.6 x10^3uL (1.8-7.7); NEUT % 63 % (31-73); PLATELET COUNT 181 x10^3/uL (140-400); RED BLOOD COUNT 4.04 x10^6/uL (4.30-5.70); RED CELL DISTRIBUTION WIDTH 12.8 % (11.5-14.5); WHITE BLOOD COUNT 7.3 x10^3/uL (4.0-11.0)
[2019-01-12 07:00] VITALS: BP 117/60
--- NOTE | 2019-01-12 09:08 | NUR ---
SW following pt. Spoke with [facility]. Both are at capacity and don't have many planned discharges. [facility] reported they are not taking inpatient transfer request today. Physician notified.
[2019-01-12] MEDS: METHADONE (DAILY MAINT DOSE) 100 MG/100 ML SOLUTION PO SCH (09:12)
--- NOTE | 2019-01-12 09:50 | PDOC ---
Infectious Disease Note Subjective Subjective pt is feeling better, able to extend the elbow ROS ROS no n/v/d/sob/fever Vital Sign Vital Signs Vital Signs Date Time Temp Pulse Resp B/P (MAP) Pulse Ox O2 Delivery O2 Flow Rate FiO2 01/12/19 07:00 97.6 57 18 117/60 (79) 96 Room Air 97.6 Physical Exam PHYSICAL EXAM GENERAL: Alert and oriented gentleman, not in any distress. VITAL SIGNS: Stable HEENT: NAD. NECK: Supple, no JVP, no lymphadenopathy. LUNGS: Clear. HEART: S1, S2 regular. ABDOMEN: Benign. EXTREMITIES: No edema or cyanosis. SKIN: Unremarkable except right upper extremity. There is necrotic opening in the antecubital fossa and significant surrounding redness, induration, tenderness that involves the upper arm and the forearm. Elbow movements are normal. NEUROLOGIC: The patient is neurologically intact. Labs Lab Laboratory Tests Test 01/11/19 10:40 01/12/19 04:55 01/12/19 05:33 Urine Opiates Screen Neg (NEG) Urine Methadone Screen Pos (NEG) Urine Barbiturates Neg (NEG) Urine Phencyclidine Screen Neg (NEG) Urine Amphetamine/Methamphetamine Neg (NEG) Urine Benzodiazepines Screen Neg (NEG) Urine Cocaine Screen Neg (NEG) Urine Cannabinoids Screen Neg (NEG) Urine Ethyl Alcohol Neg (NEG) White Blood Count 7.3 x10^3/uL (4.0-11.0) Red Blood Count 4.04 x10^6/uL (4.30-5.70) Hemoglobin 11.7 g/dL (13.0-17.5) Hematocrit 34.8 % (39.0-53.0) Mean Corpuscular Volume 86 fL (79-100) Mean Corpuscular Hemoglobin 29 pg (25-35) Mean Corpuscular Hemoglobin Concent 34 g/dL (31-37) Red Cell Distribution Width 12.8 % (11.5-14.5) Platelet Count 181 x10^3/uL (140-400) Neutrophils (%) (Auto) 63 % (31-73) Lymphocytes (%) (Auto) 24 % (24-48) Monocytes (%) (Auto) 10 % (0-9) Eosinophils (%) (Auto) 3 % (0-3) Basophils (%) (Auto) 1 % (0-3) Neutrophils # (Auto) 4.6 x10^3uL (1.8-7.7) Lymphocytes # (Auto) 1.7 x10^3/uL (1.0-4.8) Monocytes # (Auto) 0.7 x10^3/uL (0.0-1.1) Eosinophils # (Auto) 0.2 x10^3/uL (0.0-0.7) Basophils # (Auto) 0.1 x10^3/uL (0.0-0.2) Sodium Level 144 mmol/L (136-145) Potassium Level 3.5 mmol/L (3.5-5.1) Chloride Level 108 mmol/L (98-107) Carbon Dioxide Level 27 mmol/L (21-32) Anion Gap 9 (6-14) Blood Urea Nitrogen 6 mg/dL (8-26) Creatinine 0.8 mg/dL (0.7-1.3) Estimated GFR (Cockcroft-Gault) 110.7 Glucose Level 103 mg/dL (70-99) Calcium Level 7.7 mg/dL (8.5-10.1) Micro Microbiology 01/10/19 Blood Culture - Preliminary, Resulted NO GROWTH AFTER 1 DAY Objective Assessment Rt anticubital fossa abscess Rt upper ext cellulitis IVDU Fever Leukocytosis Hemophilia Plan Plan of Care vanc and jabier culture surgery on case supportive care EUGENIO MERINO MD Jan 12, 2019 09:50
--- NOTE | 2019-01-12 10:24 | PDOC2 ---
MORRISADRIANNE Keesha DEPUTY TREASURER 01/12/19 1024: CONSULT Date of Consult Date of Consult DATE: 01/12/19 TIME: 10:19 Reason for Consult Reason for Consult: abscess Referring Physician Referring Physician: ER Identification/Chief Complaint Chief Complaint LUE abscess Source Source: Chart review, Patient History of Present Illness Reason for Visit: Hx of injecting cocaine-now with abscess to L AC area. Hx of hemophilia, needs factor IX--[facility] full abscess spontaneously draining now, d/w I/D -erythema is better Past Medical History Heme/Onc: Other (hemophilia B) Past Surgical History Past Surgical History: No pertinent history Family History Family History: Family History Unknown Social History No ALCOHOL: occassional Drugs: Cocaine Current Problem List Problem List Problems Medical Problems: (1) Cutaneous abscess of right upper limb Status: Acute (2) Hemophilia Status: Acute (3) IV drug abuse Status: Acute Current Medications Current Medications Current Medications Vancomycin HCl 250 ml @ 250 mls/hr 1X ONCE IV ; Start 01/10/19 at 20:30; Stop 01/10/19 at 21:29; Status UNV Sodium Chloride 1,000 ml @ 1,000 mls/hr 1X ONCE IV Last administered on at 20:30; Start 01/10/19 at 20:30; Stop 01/10/19 at 21:29; Status DC Vancomycin HCl 1.75 gm/Sodium Chloride 500 ml @ 250 mls/hr 1X ONCE IV Last administered on 01/10/19at 21:00; Start 01/10/19 at 21:00; Stop 01/10/19 at 22:59; Status DC Ondansetron HCl (Zofran) 4 mg PRN Q8HRS PRN IV NAUSEA/VOMITING; Start 01/10/19 at 22:00; Stop 01/11/19 at 08:31; Status DC Fentanyl Citrate (Fentanyl 2ml Vial) 50 mcg PRN Q2HR PRN IV PAIN Last administered on 01/11/19at 21:23; Start 01/10/19 at 22:00; Stop 01/11/19 at 21:59 ; Status DC Sodium Chloride 1,000 ml @ 150 mls/hr Q6H40M IV Last administered on at 16:26; Start 01/10/19 at 22:00; Stop 01/11/19 at 21:59; Status DC Lorazepam (Ativan) 1 mg 1X ONCE IV Last administered on 01/10/19at 22:57; Start 01/10/19 at 23:00; Stop 01/10/19 at 23:01; Status DC Methadone HCl (Dolophine) 30 mg DAILY PO Last administered on 01/12/19at 09:12; Start 01/11/19 at 09:30 Ondansetron HCl (Zofran) 4 mg PRN Q6HRS PRN IV NAUSEA/VOMITING; Start 01/11/19 at 08:30 Acetaminophen (Tylenol) 500 mg PRN Q6HRS PRN PO MILD PAIN / TEMP; Start at 08:30 Zolpidem Tartrate (Ambien) 5 mg PRN QHS PRN PO INSOMNIA Last administered on 07/22at 21:23; Start 01/11/19 at 08:30 Piperacillin Sod/ Tazobactam Sod 3.375 gm/Sodium Chloride 50 ml @ 100 mls/hr Q6HRS IV Last administered on 01/12/19at 05:41; Start 01/11/19 at 10:00 Vancomycin HCl 1 gm/Sodium Chloride 250 ml @ 250 mls/hr Q8H IV Last administered on 01/12/19at 09:08; Start 01/11/19 at 16:00 Vancomycin HCl (Vanco Per Pharmacy) 1 each PRN DAILY PRN MC SEE COMMENTS Last administered on 01/11/19at 15:59; Start 01/11/19 at 16:00 Vancomycin HCl (Vancomycin Trough Level) 1 each 1X ONCE MC ; Start 01/12/19 at 15:30; Stop 01/12/19 at 15:31 Acetaminophen (Tylenol) 1,000 mg PRN Q6HRS PRN PO MODERATE PAIN Last administered on 01/12/19at 02:14; Start 01/11/19 at 18:15 Haloperidol Lactate (Haldol Inj) 5 mg PRN Q4HRS PRN IVP AGITATION Last administered on 01/12/19at 02:17; Start 01/12/19 at 00:00 Active Scripts Active Reported Methadone Hcl 10 Mg Tablet 30 Mg PO DAILY07 Allergies Allergies: Coded Allergies: codeine (Verified Allergy, Intermediate, hives, 11/02/13) hydrocodone (Verified Allergy, Intermediate, vomiting, 11/02/13) tramadol (Verified Allergy, Intermediate, vomiting, 11/02/13) ROS General: YES: Fatigue, Other (fevers) PSYCHOLOGICAL ROS: No: Anxiety, Depression Eyes: No Blurry vision, No Double vision HEENT: No: Heacaches, Sore Throat Hematological and Lymphatic: YES: Bleeding Problems; No: Blood Clots Respiratory: No: Cough, Shortness of breath Cardiovascular: No Chest Pain, No Palpitations Gastrointestinal: No Nausea, No Vomiting Genitourinary: No Dysuria, No Hematuria Musculoskeletal: No Joint Stiffness, No Muscular Weakness Neurological: No Bowel/Bladder ControlChng, No Numbness/Tingling Skin: Yes Other (see hpi) Physical Exam General: Alert, Oriented X3, Cooperative, No acute distress HEENT: PERRLA, Mucous membr. moist/pink Lungs: Clear to auscultation, Normal air movement Heart: Regular rate, Normal S1, Normal S2, No murmurs Abdomen: Soft, No tenderness Skin: Other (L AC with draining wound, packing in place, erythema) Neuro: Normal speech, Sensation intact Psych/Mental Status: Mental status NL, Mood NL MUSCULOSKELETAL: No deformity, No swelling Vitals VITALS Vital Signs Date Time Temp Pulse Resp B/P (MAP) Pulse Ox O2 Delivery O2 Flow Rate FiO2 01/12/19 07:00 97.6 57 18 117/60 (79) 96 Room Air 97.6 Labs Labs Laboratory Tests Test 01/10/19 20:45 01/11/19 09:35 01/11/19 10:40 01/12/19 04:55 White Blood Count 13.1 x10^3/uL (4.0-11.0) 7.3 x10^3/uL (4.0-11.0) Red Blood Count 5.10 x10^6/uL (4.30-5.70) 4.04 x10^6/uL (4.30-5.70) Hemoglobin 14.4 g/dL (13.0-17.5) 11.7 g/dL (13.0-17.5) Hematocrit 44.1 % (39.0-53.0) 34.8 % (39.0-53.0) Mean Corpuscular Volume 86 fL (79-100) 86 fL (79-100) Mean Corpuscular Hemoglobin 28 pg (25-35) 29 pg (25-35) Mean Corpuscular Hemoglobin Concent 33 g/dL (31-37) 34 g/dL (31-37) Red Cell Distribution Width 12.8 % (11.5-14.5) 12.8 % (11.5-14.5) Platelet Count 216 x10^3/uL (140-400) 181 x10^3/uL (140-400) Neutrophils (%) (Auto) 86 % (31-73) 63 % (31-73) Lymphocytes (%) (Auto) 6 % (24-48) 24 % (24-48) Monocytes (%) (Auto) 7 % (0-9) 10 % (0-9) Eosinophils (%) (Auto) 0 % (0-3) 3 % (0-3) Basophils (%) (Auto) 1 % (0-3) 1 % (0-3) Neutrophils # (Auto) 11.3 x10^3uL (1.8-7.7) 4.6 x10^3uL (1.8-7.7) Lymphocytes # (Auto) 0.8 x10^3/uL (1.0-4.8) 1.7 x10^3/uL (1.0-4.8) Monocytes # (Auto) 0.9 x10^3/uL (0.0-1.1) 0.7 x10^3/uL (0.0-1.1) Eosinophils # (Auto) 0.0 x10^3/uL (0.0-0.7) 0.2 x10^3/uL (0.0-0.7) Basophils # (Auto) 0.1 x10^3/uL (0.0-0.2) 0.1 x10^3/uL (0.0-0.2) Segmented Neutrophils % 77 % (35-66) Band Neutrophils % 10 % (0-9) Lymphocytes % 8 % (24-48) Monocytes % 5 % (0-10) Platelet Estimate Adequate (ADEQUATE) Sodium Level 134 mmol/L (136-145) Potassium Level 3.5 mmol/L (3.5-5.1) Chloride Level 97 mmol/L (98-107) Carbon Dioxide Level 27 mmol/L (21-32) Anion Gap 10 (6-14) Blood Urea Nitrogen 8 mg/dL (8-26) Creatinine 0.8 mg/dL (0.7-1.3) Estimated GFR (Cockcroft-Gault) 110.7 BUN/Creatinine Ratio 10 (6-20) Glucose Level 116 mg/dL (70-99) Lactic Acid Level 1.2 mmol/L (0.4-2.0) Calcium Level 8.9 mg/dL (8.5-10.1) Total Bilirubin 1.3 mg/dL (0.2-1.0) Aspartate Amino Transf (AST/SGOT) 16 U/L (15-37) Alanine Aminotransferase (ALT/SGPT) 15 U/L (16-63) Alkaline Phosphatase 99 U/L (46-116) Total Protein 7.9 g/dL (6.4-8.2) Albumin 3.7 g/dL (3.4-5.0) Albumin/Globulin Ratio 0.9 (1.0-1.7) Erythrocyte Sedimentation Rate 20 (0-15) Urine Opiates Screen Neg (NEG) Urine Methadone Screen Pos (NEG) Urine Barbiturates Neg (NEG) Urine Phencyclidine Screen Neg (NEG) Urine Amphetamine/Methamphetamine Neg (NEG) Urine Benzodiazepines Screen Neg (NEG) Urine Cocaine Screen Neg (NEG) Urine Cannabinoids Screen Neg (NEG) Urine Ethyl Alcohol Neg (NEG) Test 01/12/19 05:33 Sodium Level 144 mmol/L (136-145) Potassium Level 3.5 mmol/L (3.5-5.1) Chloride Level 108 mmol/L (98-107) Carbon Dioxide Level 27 mmol/L (21-32) Anion Gap 9 (6-14) Blood Urea Nitrogen 6 mg/dL (8-26) Creatinine 0.8 mg/dL (0.7-1.3) Estimated GFR (Cockcroft-Gault) 110.7 Glucose Level 103 mg/dL (70-99) Calcium Level 7.7 mg/dL (8.5-10.1) Laboratory Tests Test 01/11/19 10:40 01/12/19 04:55 01/12/19 05:33 Urine Opiates Screen Neg (NEG) Urine Methadone Screen Pos (NEG) Urine Barbiturates Neg (NEG) Urine Phencyclidine Screen Neg (NEG) Urine Amphetamine/Methamphetamine Neg (NEG) Urine Benzodiazepines Screen Neg (NEG) Urine Cocaine Screen Neg (NEG) Urine Cannabinoids Screen Neg (NEG) Urine Ethyl Alcohol Neg (NEG) White Blood Count 7.3 x10^3/uL (4.0-11.0) Red Blood Count 4.04 x10^6/uL (4.30-5.70) Hemoglobin 11.7 g/dL (13.0-17.5) Hematocrit 34.8 % (39.0-53.0) Mean Corpuscular Volume 86 fL (79-100) Mean Corpuscular Hemoglobin 29 pg (25-35) Mean Corpuscular Hemoglobin Concent 34 g/dL (31-37) Red Cell Distribution Width 12.8 % (11.5-14.5) Platelet Count 181 x10^3/uL (140-400) Neutrophils (%) (Auto) 63 % (31-73) Lymphocytes (%) (Auto) 24 % (24-48) Monocytes (%) (Auto) 10 % (0-9) Eosinophils (%) (Auto) 3 % (0-3) Basophils (%) (Auto) 1 % (0-3) Neutrophils # (Auto) 4.6 x10^3uL (1.8-7.7) Lymphocytes # (Auto) 1.7 x10^3/uL (1.0-4.8) Monocytes # (Auto) 0.7 x10^3/uL (0.0-1.1) Eosinophils # (Auto) 0.2 x10^3/uL (0.0-0.7) Basophils # (Auto) 0.1 x10^3/uL (0.0-0.2) Sodium Level 144 mmol/L (136-145) Potassium Level 3.5 mmol/L (3.5-5.1) Chloride Level 108 mmol/L (98-107) Carbon Dioxide Level 27 mmol/L (21-32) Anion Gap 9 (6-14) Blood Urea Nitrogen 6 mg/dL (8-26) Creatinine 0.8 mg/dL (0.7-1.3) Estimated GFR (Cockcroft-Gault) 110.7 Glucose Level 103 mg/dL (70-99) Calcium Level 7.7 mg/dL (8.5-10.1) Assessment/Plan Assessment/Plan L AC abscess-now spontaneously draining, continue wound care, abx d/w ID caution with OR due to hemophilia, hopefully can manage conservatively now that wound draining MOO THAO MD 01/12/19 1200: CONSULT Assessment/Plan Assessment/Plan pt seen appears to be sleeping with his ear buds in d/w Dr Guanakito hernandez pt better served at 3* center no acute surgical recs will follow as needed Thanks for consult ADRIANNE CACERES APRN Jan 12, 2019 10:24 MOO THAO MD Jan 12, 2019 12:00
[2019-01-12 11:00] VITALS: BP 105/59
--- NOTE | 2019-01-12 12:25 | PDOC ---
PROGRESS NOTES Subjective Subjective HPI - f/u of hemophilia B: ROS - abscess spontaneously draining. Objective Objective Vital Signs Date Time Temp Pulse Resp B/P (MAP) Pulse Ox O2 Delivery O2 Flow Rate FiO2 01/12/19 11:00 98.7 43 17 105/59 (74) 98 Room Air 98.7 Intake and Output 01/12/19 06:59 Intake Total 1620 ml Output Total 0 ml Balance 1620 ml Intake Oral 320 ml IV Total 1300 ml Output Urine Total 0 ml # Voids 4 Physical Exam Heart: Normal S1, Normal S2 General: Alert, Oriented X3 Lungs: Clear to auscultation Neuro: Normal speech Psych/Mental Status: Mental status NL Assessment Assessment Problems Medical Problems: (1) Cutaneous abscess of right upper limb Status: Acute (2) Hemophilia Status: Acute (3) IV drug abuse Status: Acute Assessment and Plan: He is a 33-year-old man with hemophilia B, levels have been as low as 3% in the past at , he is admitted with abscess that does have purulent drainage at his right antecubital fossa. Abscess: spontaneously draining now, would recommend if getting any surgical procedure to be transferred to where levels can be checked for factor replacement as needed hemophilia B: I d/w Dr Hidalgo, plan 7000 units today to prevent bleeding. h/o drug abuse: unable to get methadone (he gets daily from methadone clinic) but could likely get from as we have a methadone clinic there Disposition: Recommend transfer to or large tertiary center where he can get methadone, factor levels checked, and factor replaced expeditiously perioperatively as needed. I d/w Dr Calabrese. Comment Review of Relevant I have reviewed the following items annetta (where applicable) has been applied. Labs Laboratory Tests Test 01/10/19 20:45 01/11/19 09:35 01/11/19 10:40 01/12/19 04:55 White Blood Count 13.1 x10^3/uL (4.0-11.0) 7.3 x10^3/uL (4.0-11.0) Red Blood Count 5.10 x10^6/uL (4.30-5.70) 4.04 x10^6/uL (4.30-5.70) Hemoglobin 14.4 g/dL (13.0-17.5) 11.7 g/dL (13.0-17.5) Hematocrit 44.1 % (39.0-53.0) 34.8 % (39.0-53.0) Mean Corpuscular Volume 86 fL (79-100) 86 fL (79-100) Mean Corpuscular Hemoglobin 28 pg (25-35) 29 pg (25-35) Mean Corpuscular Hemoglobin Concent 33 g/dL (31-37) 34 g/dL (31-37) Red Cell Distribution Width 12.8 % (11.5-14.5) 12.8 % (11.5-14.5) Platelet Count 216 x10^3/uL (140-400) 181 x10^3/uL (140-400) Neutrophils (%) (Auto) 86 % (31-73) 63 % (31-73) Lymphocytes (%) (Auto) 6 % (24-48) 24 % (24-48) Monocytes (%) (Auto) 7 % (0-9) 10 % (0-9) Eosinophils (%) (Auto) 0 % (0-3) 3 % (0-3) Basophils (%) (Auto) 1 % (0-3) 1 % (0-3) Neutrophils # (Auto) 11.3 x10^3uL (1.8-7.7) 4.6 x10^3uL (1.8-7.7) Lymphocytes # (Auto) 0.8 x10^3/uL (1.0-4.8) 1.7 x10^3/uL (1.0-4.8) Monocytes # (Auto) 0.9 x10^3/uL (0.0-1.1) 0.7 x10^3/uL (0.0-1.1) Eosinophils # (Auto) 0.0 x10^3/uL (0.0-0.7) 0.2 x10^3/uL (0.0-0.7) Basophils # (Auto) 0.1 x10^3/uL (0.0-0.2) 0.1 x10^3/uL (0.0-0.2) Segmented Neutrophils % 77 % (35-66) Band Neutrophils % 10 % (0-9) Lymphocytes % 8 % (24-48) Monocytes % 5 % (0-10) Platelet Estimate Adequate (ADEQUATE) Sodium Level 134 mmol/L (136-145) Potassium Level 3.5 mmol/L (3.5-5.1) Chloride Level 97 mmol/L (98-107) Carbon Dioxide Level 27 mmol/L (21-32) Anion Gap 10 (6-14) Blood Urea Nitrogen 8 mg/dL (8-26) Creatinine 0.8 mg/dL (0.7-1.3) Estimated GFR (Cockcroft-Gault) 110.7 BUN/Creatinine Ratio 10 (6-20) Glucose Level 116 mg/dL (70-99) Lactic Acid Level 1.2 mmol/L (0.4-2.0) Calcium Level 8.9 mg/dL (8.5-10.1) Total Bilirubin 1.3 mg/dL (0.2-1.0) Aspartate Amino Transf (AST/SGOT) 16 U/L (15-37) Alanine Aminotransferase (ALT/SGPT) 15 U/L (16-63) Alkaline Phosphatase 99 U/L (46-116) Total Protein 7.9 g/dL (6.4-8.2) Albumin 3.7 g/dL (3.4-5.0) Albumin/Globulin Ratio 0.9 (1.0-1.7) Erythrocyte Sedimentation Rate 20 (0-15) Urine Opiates Screen Neg (NEG) Urine Methadone Screen Pos (NEG) Urine Barbiturates Neg (NEG) Urine Phencyclidine Screen Neg (NEG) Urine Amphetamine/Methamphetamine Neg (NEG) Urine Benzodiazepines Screen Neg (NEG) Urine Cocaine Screen Neg (NEG) Urine Cannabinoids Screen Neg (NEG) Urine Ethyl Alcohol Neg (NEG) Test 01/12/19 05:33 Sodium Level 144 mmol/L (136-145) Potassium Level 3.5 mmol/L (3.5-5.1) Chloride Level 108 mmol/L (98-107) Carbon Dioxide Level 27 mmol/L (21-32) Anion Gap 9 (6-14) Blood Urea Nitrogen 6 mg/dL (8-26) Creatinine 0.8 mg/dL (0.7-1.3) Estimated GFR (Cockcroft-Gault) 110.7 Glucose Level 103 mg/dL (70-99) Calcium Level 7.7 mg/dL (8.5-10.1) Laboratory Tests Test 01/12/19 04:55 01/12/19 05:33 White Blood Count 7.3 x10^3/uL (4.0-11.0) Red Blood Count 4.04 x10^6/uL (4.30-5.70) Hemoglobin 11.7 g/dL (13.0-17.5) Hematocrit 34.8 % (39.0-53.0) Mean Corpuscular Volume 86 fL (79-100) Mean Corpuscular Hemoglobin 29 pg (25-35) Mean Corpuscular Hemoglobin Concent 34 g/dL (31-37) Red Cell Distribution Width 12.8 % (11.5-14.5) Platelet Count 181 x10^3/uL (140-400) Neutrophils (%) (Auto) 63 % (31-73) Lymphocytes (%) (Auto) 24 % (24-48) Monocytes (%) (Auto) 10 % (0-9) Eosinophils (%) (Auto) 3 % (0-3) Basophils (%) (Auto) 1 % (0-3) Neutrophils # (Auto) 4.6 x10^3uL (1.8-7.7) Lymphocytes # (Auto) 1.7 x10^3/uL (1.0-4.8) Monocytes # (Auto) 0.7 x10^3/uL (0.0-1.1) Eosinophils # (Auto) 0.2 x10^3/uL (0.0-0.7) Basophils # (Auto) 0.1 x10^3/uL (0.0-0.2) Sodium Level 144 mmol/L (136-145) Potassium Level 3.5 mmol/L (3.5-5.1) Chloride Level 108 mmol/L (98-107) Carbon Dioxide Level 27 mmol/L (21-32) Anion Gap 9 (6-14) Blood Urea Nitrogen 6 mg/dL (8-26) Creatinine 0.8 mg/dL (0.7-1.3) Estimated GFR (Cockcroft-Gault) 110.7 Glucose Level 103 mg/dL (70-99) Calcium Level 7.7 mg/dL (8.5-10.1) Microbiology 01/10/19 Blood Culture - Preliminary, Resulted NO GROWTH AFTER 1 DAY Medications Current Medications Vancomycin HCl 250 ml @ 250 mls/hr 1X ONCE IV ; Start 01/10/19 at 20:30; Stop 01/10/19 at 21:29; Status UNV Sodium Chloride 1,000 ml @ 1,000 mls/hr 1X ONCE IV Last administered on at 20:30; Start 01/10/19 at 20:30; Stop 01/10/19 at 21:29; Status DC Vancomycin HCl 1.75 gm/Sodium Chloride 500 ml @ 250 mls/hr 1X ONCE IV Last administered on 01/10/19at 21:00; Start 01/10/19 at 21:00; Stop 01/10/19 at 22:59; Status DC Ondansetron HCl (Zofran) 4 mg PRN Q8HRS PRN IV NAUSEA/VOMITING; Start 01/10/19 at 22:00; Stop 01/11/19 at 08:31; Status DC Fentanyl Citrate (Fentanyl 2ml Vial) 50 mcg PRN Q2HR PRN IV PAIN Last administered on 01/11/19at 21:23; Start 01/10/19 at 22:00; Stop 01/11/19 at 21:59 ; Status DC Sodium Chloride 1,000 ml @ 150 mls/hr Q6H40M IV Last administered on at 16:26; Start 01/10/19 at 22:00; Stop 01/11/19 at 21:59; Status DC Lorazepam (Ativan) 1 mg 1X ONCE IV Last administered on 01/10/19at 22:57; Start 01/10/19 at 23:00; Stop 01/10/19 at 23:01; Status DC Methadone HCl (Dolophine) 30 mg DAILY PO Last administered on 01/12/19at 09:12; Start 01/11/19 at 09:30 Ondansetron HCl (Zofran) 4 mg PRN Q6HRS PRN IV NAUSEA/VOMITING; Start 01/11/19 at 08:30 Acetaminophen (Tylenol) 500 mg PRN Q6HRS PRN PO MILD PAIN / TEMP; Start at 08:30 Zolpidem Tartrate (Ambien) 5 mg PRN QHS PRN PO INSOMNIA Last administered on 07/22at 21:23; Start 01/11/19 at 08:30 Piperacillin Sod/ Tazobactam Sod 3.375 gm/Sodium Chloride 50 ml @ 100 mls/hr Q6HRS IV Last administered on 01/12/19at 05:41; Start 01/11/19 at 10:00 Vancomycin HCl 1 gm/Sodium Chloride 250 ml @ 250 mls/hr Q8H IV Last administered on 01/12/19at 09:08; Start 01/11/19 at 16:00 Vancomycin HCl (Vanco Per Pharmacy) 1 each PRN DAILY PRN MC SEE COMMENTS Last administered on 01/11/19at 15:59; Start 01/11/19 at 16:00 Vancomycin HCl (Vancomycin Trough Level) 1 each 1X ONCE MC ; Start 01/12/19 at 15:30; Stop 01/12/19 at 15:31 Acetaminophen (Tylenol) 1,000 mg PRN Q6HRS PRN PO MODERATE PAIN Last administered on 01/12/19at 02:14; Start 01/11/19 at 18:15 Haloperidol Lactate (Haldol Inj) 5 mg PRN Q4HRS PRN IVP AGITATION Last administered on 01/12/19at 02:17; Start 01/12/19 at 00:00 Active Scripts Active Reported Methadone Hcl 10 Mg Tablet 30 Mg PO DAILY07 Vitals/I & O Vital Sign - Last 24 Hours 01/11/19 01/11/19 01/11/19 01/11/19 13:59 15:00 18:01 18:42 Temp 98.2 98.2 Pulse 74 Resp 18 B/P (MAP) 102/51 (68) Pulse Ox 100 100 O2 Delivery Room Air Room Air Room Air Room Air 01/11/19 01/11/19 01/11/19 01/11/19 19:00 20:00 21:23 23:00 Temp 100.0 98.8 100.0 98.8 Pulse 95 92 Resp 20 20 B/P (MAP) 106/59 (75) 112/55 (74) Pulse Ox 96 96 95 O2 Delivery Room Air Room Air Room Air Room Air 01/12/19 01/12/19 01/12/19 03:13 07:00 11:00 Temp 98.9 97.6 98.7 98.9 97.6 98.7 Pulse 62 57 43 Resp 20 18 17 B/P (MAP) 104/57 (73) 117/60 (79) 105/59 (74) Pulse Ox 96 96 98 O2 Delivery Room Air Room Air Room Air Intake and Output 01/11/19 01/11/19 01/12/19 14:59 22:59 06:59 Intake Total 50 ml 1570 ml Output Total 0 ml Balance 50 ml [address] ml [address] MD Jan 12, 2019 12:25
--- NOTE | 2019-01-12 12:56 | NUR ---
Discharge Note: PRINCE LI Discharge instructions and discharge home medications reviewed with Patient and a copy given. All questions have been answered and understanding verbalized. The following instructions and handouts were given: wound care Discontinued lines and drains: peripheral IV Patient discharged to Home or Self Care withSpousevia Ambulated
== END 2019-01-12 12:57 | disposition home or self-care (01) | DRG 871 ==
LOC: ER 20:04 → 5 NORTH 21:40
PROVIDERS: ADMIT Internal Medicine; ATTEND Internal Medicine
DX: A41.9 Sepsis, unspecified organism (principal); D67 Hereditary factor IX deficiency; L02.413 Cutaneous abscess of right upper limb; L03.113 Cellulitis of right upper limb; F41.9 Anxiety disorder, unspecified; F14.10 Cocaine abuse, uncomplicated; Z88.5 Allergy status to narcotic agent; Z88.8 Allergy status to other drugs, medicaments and biological substances; F32.9 Major depressive disorder, single episode, unspecified
CPT/HCPCS: 36415; 76881; 80048; 80053; 80307; 83605; 85007; 85025; 85651; 87040; 87071; 87075; 96361; 96365; 96375; J1630; J2060; J2543; J3010; J3370; J7030; J7040; J7050; 99285-25

== ENCOUNTER 2019-06-27 20:11 | Emergency (ER) | payer SELFPAY ==
[~2019-06-27] VITALS: Ht 175.3 cm; Wt 72.6 kg
[~2019-06-27 20:11] MED LIST changes: +METH10TA2 PO
[2019-06-27] MEDS ORDERED: oxyCODONE/APAP 5/325 1 TAB TABLET PO ONE (21:15)
[2019-06-27 21:49] LABS: BASO # 0.1 x10^3/uL (0.0-0.2); BASO % 1 % (0-3); EOS # 0.3 x10^3/uL (0.0-0.7); EOS % 3 % (0-3); HEMATOCRIT 32.5 % (39.0-53.0); HEMOGLOBIN 10.6 g/dL (13.0-17.5); LYMPH % 24 % (24-48); MEAN CORPUSCULAR HEMOGLOBIN 25 pg (25-35); MEAN CORPUSCULAR HGB CONC 33 g/dL (31-37); MEAN CORPUSCULAR VOLUME 78 fL (79-100); MONO # 0.6 x10^3/uL (0.0-1.1); MONO % 7 % (0-9); NEUT # 5.4 x10^3/uL (1.8-7.7); NEUT % 65 % (31-73); PLATELET COUNT 321 x10^3/uL (140-400); RED BLOOD COUNT 4.16 x10^6/uL (4.30-5.70); RED CELL DISTRIBUTION WIDTH 16.8 % (11.5-14.5); WHITE BLOOD COUNT 8.3 x10^3/uL (4.0-11.0)
[2019-06-27 21:56] LABS: CALCIUM 8.1 mg/dL (8.5-10.1); CREATININE 1.1 mg/dL (0.7-1.3); GFR 76.6; POTASSIUM 3.2 mmol/L (3.5-5.1)
[2019-06-27] MEDS ORDERED: CONTRAST GIVEN. MC PRN (22:15)
[2019-06-27] MEDS ORDERED: IOHEXOL 300 MG/ML 100ML VIAL. IV ONE (22:15)
--- NOTE | 2019-06-27 22:19 | RAD ---
PQRS Compliance statement: One or more of the following individualized dose reduction techniques were utilized for this examination: 1. Automated exposure control. 2. Adjustment of the mA and/or kV according to patient size. 3. Use of iterative reconstruction technique. Indication:Recent left facial trauma. Left eyelid swelling and pain. TECHNIQUE: CT of the orbits with IV contrast multiplanar reformats. COMPARISON: None FINDINGS: Mildly displaced fracture is seen of the floor and lateral wall of the left orbit. The lenses, globes, extraocular muscles and intraorbital fat are within normal limits. Soft tissue density seen in the inferior left orbit at the fracture site. Nondisplaced Fracture of the left zygomatic arch noted. Fracture of the lateral wall of the left maxillary sinus noted. There is complete opacification of the visualized left maxillary sinus with high attenuating material. Visualized soft tissues through the brain are within normal limits. The nasopharynx within normal limits. The bilateral temporomandibular joints are within normal limits. No radiopaque foreign body. IMPRESSION: 1. Mildly displaced Fracture of the floor and lateral wall of the left orbit. No evidence of herniation of the extraocular muscles. Correlate with gaze abnormality. 2. Mildly displaced fracture of the lateral wall of the left maxillary sinus with likely blood in the maxillary sinus. 3. Nondisplaced fracture of the left zygomatic arch. 4. Soft tissue density along the floor of the left orbit at the fracture site, nonspecific and may represent a sessile hematoma. Electronically signed by: Phil Wilson DO (06/27/2019 10:16 PM) [facility]
[2019-06-27 22:27] VITALS: BP 117/64
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
== END 2019-06-27 23:30 | disposition left against medical advice (07) ==
LOC: ER 20:11
DX: S05.12XA Contusion of eyeball and orbital tissues, left eye, initial encounter (principal); Z88.5 Allergy status to narcotic agent; Z88.6 Allergy status to analgesic agent; W22.8XXA Striking against or struck by other objects, initial encounter; Y93.89 Activity, other specified; Y92.89 Other specified places as the place of occurrence of the external cause; Y99.8 Other external cause status
CPT/HCPCS: 36415; 70481; 80048; 85025; 99285; Q9967